=== PATIENT | male | born 1960 | race Caucasian/White ===

== ENCOUNTER 2017-01-23 08:15 | Day surgery (SDC) | payer BC ==
[2017-01-20 10:22] LABS: HEMOGLOBIN 15.4 g/dL (13.5-17.5); MCH 30.6 pg (26.0-34.0); MCHC 32.8 g/dL (31.0-37.0); MCV 93.4 fL (80.0-100.0); MEAN PLATELET VOLUME 10.3 fL (7.4-10.4); RBC 5.03 10x6/uL (4.20-6.10); WBC 6.8 10x3/uL (4.8-10.8)
[2017-01-20 10:35] LABS: CALC OSMOLALITY 275 mosm/kg (275-300); CALCIUM 9.1 mg/dL (8.5-10.1); CARBON DIOXIDE 27.4 mmol/L (21.0-32.0); CHLORIDE - SERUM 104 mmol/L (98-107); CREATININE - SERUM 0.8 mg/dL (0.6-1.3); GLUCOSE 97 mg/dL (74-106); POTASSIUM - SERUM 4.3 mmol/L (3.5-5.1); SODIUM 138 mmol/L (136-145); UREA NITROGEN 12 mg/dL (7-18); eGFR NON AFRICAN AMERICAN > 90 mL/min (90-120)
[~2017-01-23] VITALS: Ht 177.8 cm; Wt 142.0 kg
[~2017-01-23 08:15] MED LIST: BAYER CHEWABLE81 MG PO; FIBER-TABS625 MG PO; FISH OIL 1,2001 CAP PO; FUROSEMIDE20 MG PO; NORVASC5 MG PO; PRINIVIL20 MG PO; PROTONIX40 MG PO; TOPROL XL50 MG PO; ZOFRAN8 MG PO
[2017-01-23] MEDS ORDERED: FOLTX TABLET1 EACH PO (09:41)
[2017-01-23 09:43] VITALS: BP 196/111; Ht 177.8 cm; Wt 142.0 kg
[2017-01-23] MEDS ORDERED: NORCO 7.5/325 T1 TA1 PO (13:25)
--- NOTE | 2017-01-24 07:23 | OP ---
PATIENT NAME: KENNY WARE MEDICAL RECORD: [id number] :56 LOCATION:[facility] ADMISSION DATE: SURGEON: DAVID GRIFFIN MD DATE OF OPERATION: 01/23/2017 SURGEON: David Griffin MD PREOPERATIVE DIAGNOSES: 1. Biliary dyskinesia. 2. Right upper quadrant pain. POSTOPERATIVE DIAGNOSES: 1. Biliary dyskinesia. 2. Right upper quadrant pain. PROCEDURE PERFORMED: Laparoscopic cholecystectomy. ANESTHESIA: General. COMPLICATIONS: None. SPECIMENS: Gallbladder. Case was contaminated. ESTIMATED BLOOD LOSS: 20 cc. OPERATIVE COURSE: After consent was obtained, the patient was taken to the operating room and placed in supine position on the operating table. Next, general anesthesia was given via endotracheal intubation after a timeout was taken to confirm the correct patient and procedure. Next, the abdomen was prepped and draped in typical sterile fashion. Local anesthetic was injected just above the umbilicus. A stab incision was made with 11-blade scalpel. Using a 5-mm bladeless optical trocar, the abdomen was entered under direct laparoscopic vision. Adequate pneumoperitoneum was achieved. The abdominal cavity was inspected. No evidence of bowel injury. No evidence of bleeding. The patient was then placed in the steep reverse Trendelenburg position. All remaining trocars were placed after the administration of local anesthetic, a two 5-mm trocars in the right upper quadrant and 11-mm trocar in the subxiphoid position. The fundus of the gallbladder was grasped and retracted cephalad. The infundibulum was grasped and retracted laterally. The peritoneum was incised using electrocautery. Blunt dissection was then performed until the critical view was obtained. The cystic duct lateral, cystic artery medial, liver in posterior window. Three clips were placed in the proximal cystic duct, 1 clip distal and 2 clips were placed in the proximal cystic artery. The duct and artery were then transected with laparoscopic Metzenbaum scissors. The remaining portion of the gallbladder was then dissected from the liver bed using electrocautery. Once complete, it was grasped with the tenaculum and removed through the 11-mm trocar and sent for permanent pathology. The operative field was then copiously irrigated and suctioned. Careful attention was paid to hemostasis, which was obtained in the liver bed using electrocautery. The abdominal cavity was inspected. No evidence of bowel injury. No evidence of bleeding, no evidence of bile leak. The clips were inspected. There were [address] in the duct, [address] in the artery. At this time, all remaining instruments were removed. The abdomen was desufflated. [facility] OPERATIVE REPORT [id number] JEANIEKENNY DALLAS removed. Skin was closed with 4-0 Monocryl, Mastisol and Steri-Strips. At the end of the case, all needle and instrument counts were correct. No complications occurred. The patient was extubated and transferred to the PACU in stable condition. TRANSINT:[id number] Voice Confirmation ID: [id number] DOCUMENT ID: [id number] DAVID GRIFFIN MD at 0723 CC: [id number] DICTATION DATE: 01/23/17 1322 DRIVER LICENSE TECHNICIAN: 01/23/17 [id number] [facility] 01/23/17 [id number] [place] [address]
== END 2017-01-23 15:25 | disposition home or self-care (01) ==
LOC: D.OPS 08:15 → D.PAN 10:30 → D.OPS 15:25
PROVIDERS: Anesthesiology
DX: K82.8 Other specified diseases of gallbladder (principal); R10.11 Right upper quadrant pain; I10 Essential (primary) hypertension; K21.9 Gastro-esophageal reflux disease without esophagitis; E66.01 Morbid (severe) obesity due to excess calories; Z68.42 Body mass index [BMI] 45.0-49.9, adult